=== PATIENT | female | born 1960 | race Caucasian/White ===

== ENCOUNTER 2016-03-29 06:24 | Day surgery (SDC) | payer OTHER ==
[2016-03-28 13:36] VITALS: BMI 25.6
[2016-03-29 06:39] VITALS: TEMP 98
[2016-03-29] MEDS ORDERED: LIDOCAINE 1%/EPI 1:100000 (50 ML MULTI DOSE VIAL) ONE (07:44)
[2016-03-29] MEDS ORDERED: LIDOCAINE 1%/EPI 1:100000 (50 ML MULTI DOSE VIAL) INF ONE ×2 (08:20)
[2016-03-29] MEDS ORDERED: BENZOIN/ALOE VERA/STORAX/TOLU 58 ML BOTTLE ONE (08:35)
--- NOTE | 2016-03-29 08:49 | HP ---
History & Physical Update - History History: No Change - Physical Physical: No Change - Assessment Assessment: No Change - Plan Plan: No Change
--- NOTE | 2016-03-29 08:51 | OP ---
Operative Note - Note: Operative Date: 03/29/16 Pre-Operative Diagnosis: left lower abdominal wall cyst Operation: Excision of abdominal wall cyst Findings: 2 cm cyst Post-Operative Diagnosis: Same as Pre-op Surgeon: Geovanni Fagan Anesthesia: Local Specimens Removed: abdominal wall cyst Estimated Blood Loss (mls): 1 Operative Report Dictated: Yes
[2016-03-29 11:04] VITALS: BP 136/77; PULSE 72
--- NOTE | 2016-03-29 18:02 | OP ---
DATE OF OPERATION: 03/29/2016 PROCEDURE: Excision of left lower abdominal wall cyst. PREOPERATIVE DIAGNOSIS: Left lower abdominal wall sebaceous cyst. POSTOPERATIVE DIAGNOSIS: Left lower abdominal wall sebaceous cyst. SURGEON: Geovanni Fagan M.D. ANESTHESIA: Local. FINDINGS AND PROCEDURE: This is a 56-year-old female who is status post abdominoplasty who presents with a 2-cm cystic mass of the left side just under the abdominoplasty scar. So patient is advised excisional biopsy of the cyst, and consent was obtained after discussing the risks, benefits, and alternatives of the procedure. Patient was brought to the operating room and placed in supine position. The operative site was prepped and draped in the usual sterile fashion using lidocaine 1% with epinephrine, local anesthesia was administered to the proposed anesthesia site. A 2-cm elliptical incision was made over the old scar and above the cyst was made using the scalpel blade number 15, further dissection using iris scissors combined with Bovie cautery. This was done until the cyst together with the ellipse of skin was completely excised. The wound was undermined about 1 cm from its margin using iris scissors and the wound was closed with interrupted Vicryl Polysorb 3-0 suture for the dermis and continuous Biosyn 4-0 suture for the subcuticular layer. The wound closure was reinforced with Steri-Strips and covered with sterile dressing. The patient was transferred back to [facility] in satisfactory condition. Estimated blood loss was 1 mL, wound class clean. Dre AWAN/[id number] MTDD
--- NOTE | 2016-03-30 14:28 | PATH ---
Surgical Pathology Report Patient Name: FRANCO [facility]. Rec. #: [id number] /Age/Gender: 1960 (Age: 56) / F Account: [id number] Location: [facility] SURGICAL Taken: 03/29/2016 Received: 03/29/2016 Reported: 03/30/2016 Physicians: Geovanni Fagan M.D. Specimen(s) Received ABDOMINAL WALL CYST (LEFT) Clinical History Abdominal wall cyst left Final Diagnosis SKIN AND SOFT TISSUE, LEFT ABDOMINAL WALL, CYST, EXCISION: EPIDERMAL INCLUSION CYST. Electronically Signed Donis Simpson M.D. Gross Description Received in formalin, labeled "abdominal wall cyst" is a 1.8 x 1.3 x 1.3 cm intact cyst containing harley sebaceous material. The specimen is partially surfaced by a 0.9 x 0.2 cm harley, elliptical, unremarkable portion of skin. A guest services representative section is submitted in one cassette. /03/29/201603/29/2016
== END 2016-03-29 09:10 | disposition home or self-care (01) ==
LOC: JASU-SURG 06:24
PROVIDERS: ATTEND Surgery
PROC: 0WBF0ZZ Excision of Abdominal Wall, Open Approach (ICD-10-PCS; principal; 2016-03-29 08:00)
DX: D21.4 Benign neoplasm of connective and other soft tissue of abdomen (principal)
CPT/HCPCS: 88304-TC

== ENCOUNTER 2017-07-15 13:19 | Emergency (ER) | payer OTHER ==
--- NOTE | 2017-07-15 13:24 | PDOC ---
History of Present Illness - General Chief Complaint: Pain Stated Complaint: MID BACK PAIN Time Seen by Provider: 07/15/17 13:23 - History of Present Illness Initial Comments: 07/15/17 14:40 Chief complaint: Mid back pain History of present illness: Patient with pain across the mid back since carrying child yesterday. History of low back problems, but no flareups recently. Review of systems: No fever/chills, URI symptoms, sore throat, cough, anterior chest pain, shortness of breath, nausea, vomiting, diarrhea, urinary tract symptoms, vaginal bleeding or discharge, Past medical history: Hypertension, mild seasonal asthma, no exacerbations recently. No medication ALLERGIES Social/family history reviewed and noncontributory Physical exam: Alert and oriented well-developed well-nourished no acute distress cheerful and cooperative Afebrile, vital signs normal except for borderline elevated blood pressure, for which the patient is being treated HEENT clear Neck supple without bruit mass or nodes Chest clear, with full breath sounds bilaterally and no wheezes rales or rhonchi No chest wall or rib cage tenderness or deformity CV regular without murmur rub or gallop Abdomen soft nontender without mass or organomegaly. No CVAT Neurological intact Spine: There is mild paravertebral spasm bilaterally in the lower thoracic region. No point tenderness or deformity of the vertebral bodies. No sign of inflammation. Maintenance of normal lordosis. No radiation of pain to the legs, and no radicular signs or symptoms Impression: Upper back strain, muscle spasm Plan: Dramatic treatment and follow-up. Past History - Past Medical History Allergies/Adverse Reactions: Allergies Allergy/AdvReac Type Severity Reaction Status Date / Time acetaminophen [From Tylenol] Allergy Intermediate Swelling Verified 07/15/17 13: 27 SUNFLOWER SEEDS Allergy Mild Swelling Uncoded 07/15/17 13:29 Home Medications: Ambulatory Orders Albuterol Sulfate [Proair Respiclick] 90 mcg IH PRN PRN 03/29/16 Amlodipine Besylate [Norvasc -] 5 mg PO DAILY 03/29/16 Hydrochlorothiazide 25 mg PO DAILY 03/29/16 Montelukast Na [Singulair -] 10 mg PO DAILY 03/29/16 Cyclobenzaprine HCl [Flexeril] 10 mg PO TID #15 tablet 07/15/17 Diclofenac Sodium 50 mg PO BID #14 tablet. 07/15/17 Anemia: No Asthma: Yes (NO RECENT ATTACK) Cancer: Yes (BREAST-LUMPECTOMY) Cardiac Disorders: No CVA: No COPD: No CHF: No Dementia: No Diabetes: No GI Disorders: No Disorders: No HTN: Yes Hypercholesterolemia: No Liver Disease: No Seizures: No Thyroid Disease: No - Surgical History Abdominal Surgery: Yes (TUMMY TUCK) Appendectomy: No Cardiac Surgery: No Cholecystectomy: No Lung Surgery: No Neurologic Surgery: No Orthopedic Surgery: No - Suicide/Smoking/Psychosocial Hx Smoking History: Never smoked Have you smoked in the past 12 months: No Hx Alcohol Use: No Drug/Substance Use Hx: No Substance Use Type: None Hx Substance Use Treatment: No Medical Decision Making - Medical Decision Making 07/15/17 14:43 Pain is improved with Toradol. Patient is fully ambulatory and with less pain and stiffness. Symptomatic treatment to continue. Return if symptoms worsen or follow-up with primary physician. Fully ambulatory and in no significant pain or other distress upon discharge *DC/Admit/Observation/Transfer Diagnosis at time of Disposition: Muscle strain of right upper back Qualifiers: Encounter type: initial encounter Qualified Code(s): S29.012A - Strain of muscle and tendon of back wall of thorax, initial encounter - Discharge Dispostion Disposition: HOME Condition at time of disposition: Improved Decision to Admit order: No - Prescriptions Prescriptions: Cyclobenzaprine HCl [Flexeril] 10 mg PO TID #15 tablet Diclofenac Sodium 50 mg PO BID #14 tablet.dr - Referrals - Patient Instructions Printed Discharge Instructions: Thoracic Back Pain Additional Instructions: Rest, heat, medication as directed. Avoid heavy work, lifting, or bending. Recheck primary physician if no improvement 3-5 days. - Post Discharge Activity Forms/Work/School Notes: Back to Work
[2017-07-15] MEDS ORDERED: KETOROLAC TROMETHAMINE 60 MG/2 ML VIAL IM ONE (13:49)
[2017-07-15] MEDS ORDERED: KETOROLAC TROMETHAMINE 60 MG/2 ML VIAL ONE (13:50)
[2017-07-15 13:51] VITALS: BP 157/90; PULSE 78; TEMP 98.4; BMI 25.4
== END 2017-07-15 14:26 | disposition home or self-care (01) ==
LOC: FER 13:19
PROC: 3E0233Z Introduction of Anti-inflammatory into Muscle, Percutaneous Approach (ICD-10-PCS; principal; 2017-07-15)
DX: S29.012A Strain of muscle and tendon of back wall of thorax, initial encounter (principal); X58.XXXA Exposure to other specified factors, initial encounter; Y93.89 Activity, other specified; Y92.9 Unspecified place or not applicable; I10 Essential (primary) hypertension; J45.909 Unspecified asthma, uncomplicated
CPT/HCPCS: 99282-25

== ENCOUNTER 2020-04-03 18:14 | Emergency (ER) | payer OTHER ==
[2020-04-03 18:25] VITALS: PULSE 84; TEMP 98; BMI 25.4
[2020-04-03] MEDS ORDERED: HYDROCHLOROTHIAZIDE 25 MG TABLET (FP) PO ONE (19:35)
[2020-04-03] MEDS ORDERED: amLODIPine BESYLATE 5 MG TABLET (FP) PO ONE (19:35)
[2020-04-03] MEDS ORDERED: amLODIPine BESYLATE 5 MG TABLET (FP) ONE (19:42)
[2020-04-03] MEDS ORDERED: HYDROCHLOROTHIAZIDE 25 MG TABLET (FP) ONE (19:42)
[2020-04-03 19:46] LABS: BASO % 2.3 % (0-2.0); EOS % 2.9 % (0-4.5); HEMATOCRIT 43.5 % (32.4-45.2); HEMOGLOBIN 14.3 GM/dl (10.7-15.3); LYMPH % 29.6 % (8-40); MCH 30.1 pg (25.7-33.7); MCHC 32.8 g/dl (32.0-36.0); MEAN PLT VOLUME 8.9 fl (7.5-11.1); MONO % 6.5 % (3.8-10.2); NEUT % 58.7 % (42.8-82.8); PLATELET COUNT 229 K/MM3 (134-434); RBC 4.73 M/mm3 (3.60-5.2); WHITE BLOOD COUNT 9.2 K/mm3 (4.0-10.8)
[2020-04-03 20:18] LABS: ALBUMIN 4.2 g/dl (3.4-5.0); BILIRUBIN,TOTAL 0.9 mg/dl (0.2-1); CREATININE 0.6 mg/dl (0.55-1.3); POTASSIUM 3.8 mmol/L (3.5-5.1); TOT PROT 6.7 g/dl (6.4-8.2)
[2020-04-03 20:54] VITALS: BP 190/84
== END 2020-04-03 21:01 | disposition home or self-care (01) ==
LOC: FER 18:14 → SUPCPDRO 18:14 → FER 21:01
DX: I10 Essential (primary) hypertension (principal)
CPT/HCPCS: 36415; 80053; 84484; 85025; 93005; 99284-25

== ENCOUNTER 2020-10-08 18:05 | Emergency (ER) | payer OTHER ==
[2020-10-08 18:21] VITALS: BMI 25.6
[2020-10-08] MEDS ORDERED: FAMOTIDINE 20 MG/50 ML IVPB 20 MG/50 ML MG IVPB ONE ×2 (18:23→18:41)
[2020-10-08] MEDS ORDERED: SODIUM CHLORIDE 0.9% 500 ML INFUS.BAG IV ONE (18:24)
[2020-10-08] MEDS ORDERED: MAG HYDROX/AL HYDROX/SIMETH 30 ML UNIT-DOSE CUP PO ONE (18:24)
[2020-10-08] MEDS ORDERED: MAG HYDROX/AL HYDROX/SIMETH 30 ML UNIT-DOSE CUP ONE (18:41)
[2020-10-08 18:58] LABS: BASO % 1.1 % (0-2.0); EOS % 0.9 % (0-4.5); HEMATOCRIT 41.2 % (32.4-45.2); HEMOGLOBIN 13.7 GM/dl (10.7-15.3); LYMPH % 23.2 % (8-40); MCH 30.3 pg (25.7-33.7); MCHC 33.2 g/dl (32.0-36.0); MEAN CELL VOLUME 91.5 fl (80-96); MEAN PLT VOLUME 8.9 fl (7.5-11.1); MONO % 12.4 % (3.8-10.2); NEUT % 62.4 % (42.8-82.8); PLATELET COUNT 228 10^3/uL (134-434); RDW 11.8 % (11.6-15.6); WHITE BLOOD COUNT 7.8 K/mm3 (4.0-10.8)
[2020-10-08 19:10] LABS: ALBUMIN 3.7 g/dl (3.4-5.0); ALK PHOS 84 U/L (45-117); ANION GAP 9 MMOL/L (8-16); BILIRUBIN,TOTAL 0.8 mg/dl (0.2-1); CALCIUM 8.5 mg/dl (8.5-10); CHLORIDE 101 mmol/L (98-107); CO2 24 mmol/L (21-32); GLUCOSE,RANDOM 115 mg/dl (74-106); SGOT/AST 33 U/L (15-37); SGPT/ALT 44 U/L (13-61); SODIUM 134 mmol/L (136-145); TOT PROT 6.6 g/dl (6.4-8.2)
[2020-10-08] MEDS ORDERED: POTASSIUM CHLORIDE TABS 20 MEQ TABLET.ER (FP) PO ONE ×2 (19:50→19:53)
[2020-10-08 20:09] LABS: LIPASE 139 U/L (73-393)
[2020-10-08 20:25] LABS: EPITHELIAL CELLS FEW /hpf
[2020-10-08 21:00] VITALS: BP 129/75; PULSE 79; TEMP 97.8
== END 2020-10-08 21:10 | disposition home or self-care (01) ==
LOC: FER 18:05
PROC: 3E033NZ Introduction of Analgesics, Hypnotics, Sedatives into Peripheral Vein, Percutaneous Approach (ICD-10-PCS; principal; 2020-10-08)
DX: R10.13 Epigastric pain (principal)
CPT/HCPCS: 36415; 80053; 81003; 81015; 83690; 84484; 85025; 93005; 99285-25

== ENCOUNTER 2022-04-10 13:13 | Emergency (ER) | payer OTHER ==
[2022-04-10 13:30] VITALS: BP 140/73; PULSE 82; RESP 16; TEMP 98.5; BMI 24.7
== END 2022-04-10 14:10 | disposition home or self-care (01) ==
LOC: FER 13:13
DX: M70.21 Olecranon bursitis, right elbow (principal)
CPT/HCPCS: 73070-TC-RT-FY; 99283-25

== ENCOUNTER 2023-12-19 04:08 | Day surgery (SDC) | payer OTHER ==
[2023-12-15 09:46] VITALS: BMI 25.0
[2023-12-19 08:46] VITALS: RESP 18
[2023-12-19] MEDS ORDERED: PROPOFOL 20 ML ONE (10:41)
[2023-12-19] MEDS ORDERED: ceFAZolin SODIUM 1 GM VIAL ONE (10:41)
[2023-12-19] MEDS ORDERED: MIDAZOLAM HCL 2 MG/2 ML SINGLE DOSE VIAL ONE (10:41)
[2023-12-19] MEDS ORDERED: ONDANSETRON 4 MG/2 ML VIAL ONE (10:41)
[2023-12-19] MEDS ORDERED: DEXAMETHASONE SOD PHOSPHATE 4 MG/1 ML VIAL ONE (10:41)
[2023-12-19] MEDS ORDERED: LIDOCAINE HCL/PF 2% SDV 5ML VIAL ONE (10:43)
[2023-12-19] MEDS ORDERED: ISOSULFAN BLUE 50 MG/5 ML VIAL SQ ONE (11:37)
[2023-12-19] MEDS ORDERED: LIDOCAINE HCL 1%, 10 MG/ML (20ML VIAL) ONE (11:37)
[2023-12-19] MEDS: ceFAZolin SODIUM 1 GM VIAL IVPB ONE (12:18)
[2023-12-19] MEDS: LIDOCAINE HCL 1%, 10 MG/ML (50 mL VIAL) INF ONE ×2 (12:30)
[2023-12-19] MEDS ORDERED: oxyCODONE HCL 5 MG TABLET PO PRN (12:55)
[2023-12-19] MEDS ORDERED: ONDANSETRON 4 MG/2 ML VIAL IVPUSH PRN (12:55)
[2023-12-19] MEDS ORDERED: LACTATED RINGERS SOLUTION 1,000 ML IV SCH (13:00)
[2023-12-19 16:28] VITALS: BP 137/72; PULSE 94; TEMP 98
== END 2023-12-19 16:35 | disposition home or self-care (01) ==
LOC: JASU-SURG 04:08
PROVIDERS: ATTEND Surgery
PROC: 0HBT0ZZ Excision of Right Breast, Open Approach (ICD-10-PCS; principal; 2023-12-19 10:30)
DX: C50.911 Malignant neoplasm of unspecified site of right female breast (principal)
CPT/HCPCS: 88307-TC; 88341-TC; 88342-TC; 94760

== ENCOUNTER 2023-12-21 17:16 | Emergency (ER) | payer OTHER ==
[2023-12-21 17:35] VITALS: BP 135/77; PULSE 77; RESP 18; TEMP 98.2; BMI 25.0
== END 2023-12-21 18:11 | disposition home or self-care (01) ==
LOC: FER 17:16
DX: Z48.01 Encounter for change or removal of surgical wound dressing (principal)
CPT/HCPCS: 99281-25